=== PATIENT | male | born 1995 ===

== ENCOUNTER 2020-04-01 17:20 | Emergency (ER) | payer OTHER ==
[~2020-04-01] VITALS: Ht 175.3 cm; Wt 79.4 kg
== END 2020-04-01 19:31 | disposition left against medical advice (07) ==
LOC: ER 17:20
DX: Z53.21 Procedure and treatment not carried out due to patient leaving prior to being seen by health care provider (principal)
CPT/HCPCS: 99282

== ENCOUNTER → 2020-12-25 | Outpatient (CLI) | payer SELFPAY ==
[2020-12-25 13:27] LABS: Stool Occult Bld Immuno 1 Negative (NEGATIVE)
== END | disposition home or self-care (01) ==
LOC: LAB SHORT 07:50 → LAB UCHC 07:50
PROVIDERS: Family Medicine
DX: K92.1 Melena (principal)
CPT/HCPCS: 83993; G0328

== ENCOUNTER → 2021-07-01 | Outpatient (CLI) | payer OTHER ==
[2021-07-02 12:35] LABS: Adenovirus F 40/41 Not Detected (NOT DETECT); Astrovirus Not Detected (NOT DETECT); Campylobacter Sp Detected (NOT DETECT); Cryptosporidium Not Detected (NOT DETECT); Cyclospora Cayetanensis Not Detected (NOT DETECT); E. Coli O157 Not Detected (NOT DETECT); Entamoeba Histolytica Not Detected (NOT DETECT); Enteroaggregative E. coli-EAEC Not Detected (NOT DETECT); Enteropathogenic E. coli-EPEC Not Detected (NOT DETECT); Enterotoxigenic E. coli-ETEC Not Detected (NOT DETECT); Giardia Lamblia Not Detected (NOT DETECT); Norovirus GI/GII Not Detected (NOT DETECT); Plesiomonas Shigelloides Not Detected (NOT DETECT); Rotavirus A Not Detected (NOT DETECT); Salmonella Sp Not Detected (NOT DETECT); Sapovirus Not Detected (NOT DETECT); Shiga Toxin-prod E. coli-STEC Not Detected (NOT DETECT); Shigella/Enteroin E. coli-EIEC Not Detected (NOT DETECT); Vibrio Cholerae Not Detected (NOT DETECT); Vibrio Sp Not Detected (NOT DETECT); Yersinia Enterocolitica Not Detected (NOT DETECT)
== END | disposition home or self-care (01) ==
LOC: LAB SHORT 19:20
PROVIDERS: Internal Medicine Gastroenterology
DX: R19.7 Diarrhea, unspecified (principal)
CPT/HCPCS: 0097U

== ENCOUNTER 2022-11-30 20:38 | Observation (INO) | payer OTHER ==
[~2022-11-30] VITALS: Ht 175.3 cm; Wt 91.2 kg
[~2022-11-30 20:38] MED LIST: ESCI10; HYDPAM25
[2022-11-30 21:39] LABS: BASOPHILS ABSOLUTE AUTO 0.06 K/mm3 (0.00-0.23); BASOPHILS PERCENT AUTO 1 % (0-2); EOSINOPHILS ABSOLUTE AUTO 0.13 K/mm3 (0.00-0.68); EOSINOPHILS PERCENT AUTO 1 % (0-6); Hematocrit 46.4 % (37.0-53.0); Hemoglobin 16.4 g/dL (13.5-17.5); IMMATURE GRAN ABSOLUTE AUTO 0.05 K/mm3 (0.00-0.10); IMMATURE GRAN PERCENT AUTO 0 % (0-1); LYMPHOCYTES ABSOLUTE AUTO 3.58 K/mm3 (0.84-5.20); LYMPHOCYTES PERCENT AUTO 31 % (21-46); MONOCYTES ABSOLUTE AUTO 1.03 K/mm3 (0.16-1.47); MONOCYTES PERCENT AUTO 9 % (4-13); Mean Corpuscular HGB 28.8 pg (26.0-34.0); Mean Corpuscular HGB Conc 35.3 g/dL (31.5-36.5); Mean Corpuscular Volume 81 fL (80-100); Mean Platelet Volume 10.3 fL (9.1-12.4); NEUTROPHILS ABSOLUTE AUTO 6.83 K/mm3 (1.96-9.15); NEUTROPHILS PERCENT AUTO 59 % (41-73); Platelet Count 317 K/mm3 (150-400); RDW Coefficient Variation 12.3 % (11.7-14.2); RDW Standard Deviation 36.5 fL (35.1-46.3); White Blood Cell Count 11.68 K/mm3 (4.00-11.30)
[2022-11-30 21:40] LABS: Source, Urine Clean Catch
[2022-11-30 21:44] LABS: Appearance, Urine Clear (Clear); Bilirubin, Urine Neg (Neg); Blood, Urine Neg (Neg); Color, Urine Yellow (P-Yellow); Glucose Qualitative, Urine Neg (Neg); Ketones, Urine Neg (Neg); Leukocyte Esterase, Urine Neg (Neg); Nitrite, Urine Neg (Neg); Protein, Urine Neg (Neg); Specific Gravity, Urine 1.025 (1.003-1.022); Urobilinogen, Urine NORM (Normal)
[2022-11-30 21:56] LABS: U Amphetamine Screen Not Detected; U Barbituate Screen Not Detected; U Benzodiazapine Screen Not Detected; U Buprenorphine Screen Not Detected; U Cannabinoids Screen Not Detected; U Cocaine Screen Not Detected; U Methadone Screen Not Detected; U Methamphetamine Screen Not Detected; U Opiates Screen Not Detected; U Oxycodone Screen Not Detected; U Phencyclidine Screen Not Detected; U Propoxyphene Screen Not Detected
[2022-11-30 22:06] LABS: Salicylate <1.7 mg/dL (2.8-20.0)
[2022-11-30 22:08] LABS: Ethanol (Alcohol), Blood, Med <3 mg/dL
[2022-11-30 22:11] LABS: Alanine Aminotransfer (ALT/SGP 40 U/L (12-78); Albumin, Blood 4.4 g/dL (3.4-5.0); Albumin/Globulin Ratio 1.1 (0.8-1.8); Alk Phos 101 U/L (50-136); Anion Gap 4 mmol/L (6-16); Aspartate Aminotrans (AST/SGOT 26 U/L (12-37); Bilirubin, Total 1.2 mg/dL (0.1-1.0); Blood Urea Nitrogen 13 mg/dL (8-24); Bun/Creatinine Ratio 19.3 (12.0-20.0); CO2, Blood 25 mmol/L (21-32); Calcium, Blood 9.4 mg/dL (8.5-10.1); Chloride, Blood 108 mmol/L (98-108); Creatinine, Blood 0.67 mg/dL (0.60-1.20); Globulin, Blood 4.1 g/dL (2.2-4.0); Glomerular Filtration Rate 133 (60-); Glucose, Blood 110 mg/dL (70-99); Potassium, Blood 3.8 mmol/L (3.5-5.5); Sodium, Blood 137 mmol/L (136-145); Total Protein, Blood 8.5 g/dL (6.4-8.2)
[2022-11-30 22:13] LABS: Acetaminophen, Random <2.0 ug/mL (10.0-30.0)
[2022-11-30] MEDS ORDERED: ARIPIPRAZOLE10 M4 PO (22:26)
[2022-11-30 22:40] LABS: Influenza A, PCR NEGATIVE (NEGATIVE); Influenza B, PCR NEGATIVE (NEGATIVE); Resp Syncytial Virus, PCR NEGATIVE (NEGATIVE); SARS-Cov-2 (COVID-19) PCR, MMC NEGATIVE (NEGATIVE)
[2022-12-01] MEDS ORDERED: ZOLOFT50 MG PO (07:55)
== END 2022-12-01 18:04 | disposition short-term general hospital (02) ==
LOC: ER 20:38 → EOR 20:39
PROVIDERS: Student in an Organized Health Care Education/Training Program; ADMIT Emergency Medicine
DX: F32.A Depression, unspecified (principal); F41.0 Panic disorder [episodic paroxysmal anxiety]; Z79.899 Other long term (current) drug therapy; Z20.822 Contact with and (suspected) exposure to COVID-19
CPT/HCPCS: 0241U; 36415; 80053; 81003; 85025; 86592; A9270; G0480

== ENCOUNTER 2023-11-02 19:11 | Emergency (ER) | payer OTHER ==
[~2023-11-02] VITALS: Ht 175.3 cm; Wt 95.2 kg
[~2023-11-02 19:11] MED LIST changes: +ARIPIPRAZOLE10 M4 PO; +ZOLOFT50 MG PO
[2023-11-02 23:05] VITALS: BP 132/91
== END 2023-11-02 23:07 | disposition home or self-care (01) ==
LOC: ER 19:11
DX: S39.012A Strain of muscle, fascia and tendon of lower back, initial encounter (principal); W18.39XA Other fall on same level, initial encounter; Y92.812 Truck as the place of occurrence of the external cause
CPT/HCPCS: 72100; 99283; A9270

== ENCOUNTER 2024-05-06 16:17 | Emergency (ER) | payer OTHER, BC ==
[~2024-05-06] VITALS: Ht 175.3 cm; Wt 95.2 kg
[2024-05-06 16:25] VITALS: BP 157/115
[2024-05-06] MEDS ORDERED: SERT25 PO (16:28)
[2024-05-06] MEDS ORDERED: ABILIFY MYCITE2 M2 PO (16:28)
[2024-05-06] MEDS ORDERED: PROP10 PO (16:28)
[2024-05-06] MEDS ORDERED: ZOLOFT50 MG PO (16:29)
[2024-05-06] MEDS ORDERED: ABILIFY5 MG PO (16:29)
[2024-05-06] MEDS ORDERED: HYDROcodone 5-APAP 325 TAB PO ONE (19:25)
[2024-05-06] MEDS ORDERED: Lidocaine 4% 1 Patch TOP ONE (19:25)
[2024-05-06] MEDS ORDERED: Ketorolac Tromethamine 15mg Vial IM ONE (19:25)
[2024-05-06] MEDS ORDERED: ASPERFLEX1 EACH TOP (19:27)
== END 2024-05-06 19:46 | disposition home or self-care (01) ==
LOC: ER 16:17
DX: M54.50 Low back pain, unspecified (principal); W18.30XA Fall on same level, unspecified, initial encounter; Z79.899 Other long term (current) drug therapy
CPT/HCPCS: A9270; J1885